=== PATIENT | male | born 1995 | race Caucasian/White ===

== ENCOUNTER 2017-11-21 23:41 | Emergency (ER) | payer OTHER ==
[2017-11-22] MEDS ORDERED: Ibuprofen TAB* 400 MG PO ONE (01:48)
[2017-11-22] MEDS ORDERED: oxyCODONE/Acetamin 5/325 MG* TAB PO ONE (01:48)
--- NOTE | 2017-11-22 03:08 | ED ---
Lower Extremity - HPI Summary HPI Summary: Patient is a 22 y/o M w/ c/o right ankle pain. He reports that he was out with his friends and going down some steps when a brick came out from one of the steps he was on. Patient states he subsequently twisted his ankle and fell. On triage, pain is rated 6/10, ambulation is noted to aggravate pain, nothing is noted to alleviate Sx. Home medications and allergies are reviewed. - History of Current Complaint Chief Complaint: EDExtremityLower Stated Complaint: RT FOOT INJURY Time Seen by Provider: 11/22/17 01:35 Hx Obtained From: Patient Mechanism Of Injury: Other - patient fell from a bunch of steps Onset of Pain: Immediate, Prior to Arrival Onset/Duration: Still Present Severity Currently: Moderate - 6/10 Pain Intensity: 6 Pain Scale Used: 0-10 Numeric - 6/10 Timing: Constant Location: Is Discrete @ - right foot Associated Signs And Symptoms: Positive: Negative Aggravating Factor(s): Ambulation Alleviating Factor(s): Nothing - Allergies/Home Medications Allergies/Adverse Reactions: Allergies Allergy/AdvReac Type Severity Reaction Status Date / Time No Known Allergies Allergy Verified 07/08/13 23:01 Home Medications: Home Medications Aspirin 81 mg CHEW TAB* [Aspirin Low Dose TAB*] 81 mg PO DAILY 11/22/17 [ History Confirmed 11/22/17] PMH/Surg Hx/FS Hx/Imm Hx Sensory History: Denies: Hx Legally Blind, Hx Deafness Opthamlomology History: Denies: Hx Legally Blind EENT History: Denies: Hx Deafness Psychiatric History: Reports: Hx Anxiety, Hx Depression, Hx Substance Abuse - per pt "i am an addict" Denies: Hx Suicide Attempt - Surgical History Surgery Procedure, Year, and Place: per father - Immunization History Date of Tetanus Vaccine: Up to Date Infectious Disease History: No Infectious Disease History: Denies: Traveled Outside the [place] in Last 30 Days - Family History Known Family History: Negative: Blood Disorder - Social History Alcohol Use: Daily Substance Use Type: Reports: Marijuana Substance Use Comment - Amount & Last Used: daily Smoking Status (MU): Light Every Day Tobacco Smoker Review of Systems Negative: Fever - on vitals, temp is 97.6 F Positive: Other - right foot pain All Other Systems Reviewed And Are Negative: Yes Physical Exam - Summary Physical Exam Summary: VITAL SIGNS: Reviewed. GENERAL: Patient is a well-developed and nourished male who is lying comfortable in the stretcher. Patient is not in any acute respiratory distress. HEAD AND FACE: No signs of trauma. No ecchymosis, hematomas or skull depressions. No sinus tenderness. EYES: PERRLA, EOMI x 2, No injected conjunctiva, no nystagmus. EARS: Hearing grossly intact. Ear canals and tympanic membranes are within normal limits. MOUTH: Oropharynx within normal limits. NECK: Supple, trachea is midline, no adenopathy, no JVD, no carotid bruit, no c- spine tenderness, neck with full ROM. CHEST: Symmetric, no tenderness at palpation LUNGS: Clear to auscultation bilaterally. No wheezing or crackles. CVS: Regular rate and rhythm, S1 and S2 present, no murmurs or gallops appreciated. ABDOMEN: Soft, non-tender. No signs of distention. No rebound no guarding, and no masses palpated. Bowel sounds are normal. EXTREMITIES: FROM in all major joints, no cyanosis or clubbing. Tenderness and mild swelling over lateral aspect of right foot. NEURO: Alert and oriented x 3. No acute neurological deficits. Speech is normal and follows commands. SKIN: Dry and warm Triage Information Reviewed: Yes Vital Signs On Initial Exam: Initial Vitals Temp Pulse Resp BP Pulse Ox 97.6 F 119 20 145/80 97 11/21/17 23:44 11/21/17 23:44 11/21/17 23:44 11/21/17 23:44 11/21/17 23:44 Vital Signs Reviewed: Yes Diagnostics - Vital Signs Vital Signs Temp Pulse Resp BP Pulse Ox 11/22/17 02:08 20 11/21/17 23:44 97.6 F 119 20 145/80 97 - Laboratory Lab Statement: Any lab studies that have been ordered have been reviewed, and results considered in the medical decision making process. - Radiology right foot x-ray Xray Interpretation: Positive (See Comments) Radiology Interpretation Completed By: ED Physician - Fracture at the base of the fifth metatarsal, pending official report Re-Evaluation - Re-Evaluation First Eval Re-Evaluation Time: 02:50 Change: Improved Comment: Salas dressing was applied to right foot. Patient instructed to avoid weight bearing on foot and was given crutches. He will be discharged to home and follow up with orthopedic doctor tomorrow. Patient is agreeable with this plan. Lower Extremity Course/Dx - Course Course Of Treatment: Patient is a 22 y/o M w/ c/o right ankle pain. He reports that he was out with his friends and going down some steps when a brick came out from one of the steps he was on. Patient states he subsequently twisted his ankle and fell. On triage, pain is rated 6/10, ambulation is noted to aggravate pain, nothing is noted to alleviate Sx. Physical exam showed tenderness and mild swelling over lateral aspect of right foot. During ed course, patient was given motrin 800 mg PO ONCE, and Percocet 5/235 tab, 1 PO ONCE. Right foot xray showed Fracture at the base of the fifth metatarsal. Salas dressing was applied to right foot. Patient instructed to avoid weight bearing on foot and was given crutches. He will be discharged to home and follow up with orthopedic doctor tomorrow. Patient is agreeable with this plan. Dx of Salas fracture. - Diagnoses Provider Diagnoses: Salas fracture Discharge - Sign-Out/Discharge Documenting (check all that apply): Patient Departure - discharge - Discharge Plan Condition: Stable Disposition: HOME Patient Education Materials: Foot Fracture in Adults (ED) Referrals: Erik Dorantes MD [Medical Doctor] - 1 Day Additional Instructions: AVOID WEIGHT BEARING ON FOOT. RETURN TO THE EMERGENCY DEPARTMENT FOR CHANGING OR WORSENING SYMPTOMS. FOLLOW UP WITH ORTHOPEDIC DOCTOR TOMORROW. - Attestation Statements Document Initiated by Scribe: Yes Documenting Scribe: René Evans Provider For Whom [place] is Documenting (Include Credential): Panfilo Lovett MD Scribe Attestation: René Zazueta , scribed for Panfilo Lovett MD on 11/22/17 at [id number].
[2017-11-22 03:45] VITALS: BP 156/75
--- NOTE | 2017-11-22 07:57 | RAD ---
HISTORY: pain COMPARISONS: None VIEWS: 3 , Frontal, lateral, and oblique views of the right foot FINDINGS: BONE DENSITY: Normal. BONES: There is a transverse nondisplaced fracture of the proximal fifth metatarsal approximately 2.5 cm from the articular surface consistent with a Salas fracture. JOINTS: There is no arthropathy. ALIGNMENT: There is no dislocation. SOFT TISSUES: Unremarkable. OTHER FINDINGS: None. IMPRESSION: TRANSVERSE NONDISPLACED FRACTURE OF THE PROXIMAL FIFTH METATARSAL R0
== END 2017-11-22 03:45 | disposition home or self-care (01) ==
LOC: ED 23:41
DX: S92.354A Nondisplaced fracture of fifth metatarsal bone, right foot, initial encounter for closed fracture (principal); W10.9XXA Fall (on) (from) unspecified stairs and steps, initial encounter; Y92.9 Unspecified place or not applicable; Z79.82 Long term (current) use of aspirin; F17.200 Nicotine dependence, unspecified, uncomplicated
CPT/HCPCS: 99282; A9270-GY